=== PATIENT | female | born 1970 | race Caucasian/White ===

== ENCOUNTER 2023-12-06 10:29 | Emergency (ER) | payer BC, SELFPAY ==
[2023-12-06 10:30] VITALS: BP 168/92; PULSE 85; RESP 18; TEMP 36.2; O2SAT 99; BMI 32.0
--- NOTE | 2023-12-06 10:35 | ED.VIS.FEGU ---
HPI HPI - Female History of Present Illness Chief Complaint: Vag Bleeding Informant: patient Pain Pain: Positive for Pelvic Pain Onset: Yesterday Context: Gradual Onset Timing: Continuous Quality: Positive for Cramping Location: LLQ and Suprapubic Worsened by: - (Nothing) Relieved by: - (Nothing) Bleeding Issue: Positive for Vaginal bleeding Onset: Today Context: Sudden Onset Timing: Continuous Current Severity: Similar to period Associated Symptoms Associated Symptoms: Negative for Dysuria, Frequency or Urgency Narrative Narrative: Patient presents with pelvic pain and vaginal bleeding that began yesterday. Patient states she started having some cramping yesterday. Patient noted some bleeding today. Patient states her pain is mainly over the suprapubic and left pelvic area. Patient states her cramping has been constant. Patient states her bleeding is similar to a menstrual period. Patient states she has gone through menopause however. Patient states she has a recent attempt at a cervical biopsy to test for cervical cancer. Patient denies any dysuria, frequency, or hematuria. Patient states she did take an [id number]-bxdflux Azo with minimal relief. Patient states she called the [facility] on-call today and was referred to the emergency department. [facility] Medical History (Updated 12/06/23 @ 14:[address] Leonardo Portillo, DO) Hypertension Ovarian cyst Home Medications hydrocodone-acetaminophen 5-325mg 5mg-325mg 1 tab PO Q6H PRN PRN Pain 3 days #10 TABLETS 12/06/23 [Rx Last Taken Unknown] Allergy/AdvReac Type Severity Reaction Status Date / Time lidocaine Allergy Rash Verified 12/06/23 10:33 Penicillins Allergy Rash Verified 12/06/23 10:32 Surgical History H/O cardiac radiofrequency ablation Hx of appendectomy Hx of section Hx of tonsillectomy Social History Smoking Status: Never smoker substance use type: does not use ROS ROS ED Constitutional Constitutional ED: Denies chills or fever(s) Eyes Eyes: Denies blurry vision or change in vision ENT ENT ED: Denies rhinorrhea or sore throat Cardiovascular Cardiovascular: Denies chest pain or palpitations Respiratory/Chest Respiratory/Chest: Denies cough or dyspnea Gastrointestinal Gastrointestinal: Reports abdominal pain; Denies nausea or vomiting Genitourinary Genitourinary ED: Denies dysuria or hematuria Musculoskeletal Musculoskeletal: Reports back pain; Denies neck pain Integumentary Denies abscess or rash Neurologic Neurologic: Denies headache(s) or weakness Allergic/Immunologic Allergic/Immunologic ED: Denies mouth swelling or urticaria EXAM Physical Exam Const Vital Signs: 12/06/23 10:30 12/06/23 12:25 12/06/23 14:00 Temperature 97.2 F L Temperature Source Temporal Pulse Rate 85 84 81 Respiratory Rate 18 18 16 Blood Pressure 168/92 H 164/90 H 154/78 H Blood Pressure Mean 117 114 103 Pulse Ox 99 99 97 Oxygen Delivery Method Room Air Room Air Room Air Positive well nourished, well developed and obese General Appearance ED: well developed and NAD Nutritional Appearance: obese HEENT Reports moist mucous membranes Neck supple and no JVD Resp normal respiratory effort and clear to auscultation bilaterally Cardio regular rate and regular rhythm GI soft to palpation, non-tender and non-distended Neuro oriented x3, CN's II-XII intact bilaterally and no sensory deficits noted Sensorium / Orientation: alert Motor Exam: strength 5/5 throughout Psych mental status grossly normal MDM MDM MDM Narrative Medical decision making narrative: Differential diagnosis includes postprocedural bleeding, coagulopathy, ovarian cyst, urinary tract infection, and postmenopausal bleeding. CBC will be obtained to assess for leukocytosis and anemia. Basic metabolic profile will be obtained to assess for electrolyte abnormality and renal function. Urinalysis will be obtained to assess for urinary tract infection and hematuria. PT with INR and PTT will be obtained to assess for coagulopathy. CT scan of the abdomen pelvis will be obtained to assess for ovarian cyst, mass, and perforation. Lab Data Attestation: I reviewed the patient's lab results. Lab results narrative: CBC was reviewed and was within normal limits. PT was INR and PTT were reviewed and were within normal limits. Basic metabolic profile was reviewed and was within normal limits. Urinalysis was reviewed. There are positive nitrites but 0-5 white blood cells. There is 1+ bacteria. Occult blood was 250 but there were 0 red blood cells seen. Labs: Laboratory Results - last 24 hr 12/06/23 12/06/23 10:55 11:20 WBC 7.4 RBC 4.20 Hgb 12.1 Hct 37.5 MCV 89.3 MCH 28.8 MCHC 32.3 RDW Std Deviation 43.5 RDW Coeff of Nico 13.5 Plt Count 304 MPV 10.8 Immature Gran % (Auto) 0.400 Neut % (Auto) 65.8 Lymph % (Auto) 20.8 Hayes % (Auto) 10.9 H Eos % (Auto) 1.4 Baso % (Auto) 0.7 Absolute Neuts (auto) 4.8 Absolute Lymphs (auto) 1.53 Nucleated RBC % 0 PT 14.0 INR 1.1 APTT 26.4 Sodium 141 Potassium 3.8 Chloride 109 H Carbon Dioxide 29.0 Anion Gap 3 L BUN 10 Creatinine 0.73 Estim Creat Clear Calc 93.77 Est GFR (MDRD) Af Amer 107 Est GFR (MDRD) Non-Af 88 BUN/Creatinine Ratio 13.7 Glucose 99 Calcium 9.0 Urine Color Yellow Urine Clarity Clear Urine pH 7.0 Ur Specific [place] 1.010 Urine Protein Negative Urine Glucose (UA) Normal Urine Ketones Negative Urine Occult Blood 250 H Urine Nitrite Positive H Urine Bilirubin 3 H Urine Urobilinogen 8 H Ur Leukocyte Esterase Negative Urine RBC 0 SEEN Urine WBC 0-5 SEEN Ur Squamous Epith Cells 0-5 SEEN Urine Bacteria 1+ Urine Mucus 0 SEEN Radiography Diagnostic Testing: Clinical Impression(s) from Imaging Studies Abdomen/Pelvis CT 12/06/23 11:00 IMPRESSION: 1. 9 mm nonenhancing low-attenuation lesion in the right kidney with CT number of 17.5 Hounsfield units is simple cyst. 2. Hypodense fluid inside the endocervical canal. 3. Small midline umbilical hernia containing only normal fat. 4. Nonvisualization of the appendix but no secondary signs of acute appendicitis. 5. No suspicious acute abnormality in the abdomen and pelvis. Electronically Signed: Robel Woo MD at 12:44 EDT , CT scan of the abdomen pelvis was obtained. There is a 9 mm lesion in the right kidney consistent with a cyst. There is hyperdense fluid in the endocervical canal. There is a small midline umbilical hernia containing fat. There is no acute process noted. This was interpreted by the radiologist and was also independently reviewed by myself. Treatment and Re-Evaluation Narrative: Patient was given IV fluids, morphine, and Zofran. Patient was advised of her findings. Case was discussed with the [facility] nurse medicare biller, Yessenia Ashley. She recommended having the patient follow-up with [facility] DISPATCH[facility] this week. She will have the patient call tomorrow to schedule an appointment. Patient was given a prescription for a short course of [place]. Patient was instructed to return if worse in any way. Patient understood and was agreeable with the plan. All questions were answered. Discharge Plan Triage Chief Complaint: Vag Bleeding ED Provider: Leonardo Portillo Dx/Rx/DC Orders Clinical Impression: Postmenopausal bleeding, Pelvic pain Instructions: ED Dysfunctional Uterine Bleeding Prescriptions: New hydrocodone-acetaminophen [hydrocodone-acetaminophen] 5-325 mg tablet 1 tab PO Q6H PRN PRN (Reason: Pain) 3 Days Qty: 10 0RF Primary Care Provider: Linh Holbrook,Out of Referrals: Symone Ayers DO [Med Staff - Active Staff] - 3-5 Days (Call tomorrow to schedule an appointment) Linh Holbrook,Out of [Primary Care Provider] - Disposition Disposition: Home, Self Care
--- NOTE | 2023-12-06 11:00 | CT_ITS ---
EXAM: CT ABDOMEN AND PELVIS WITH INTRAVENOUS CONTRAST CLINICAL INDICATION: Pelvic pain TECHNIQUE: Helically acquired images were obtained of the abdomen and pelvis with intravenous contrast. This CT exam was performed using one or more of the following dose reduction techniques: automated exposure control, adjustment of the mA and/or kV according to patient size, and/or use of iterative reconstruction technique. CONTRAST: IV 100mL Isovue-370 RADIATION DOSE: CTDIvol = 20.03 mGy, DLP = 1129.84 mGy-cm COMPARISON: No relevant prior studies available. FINDINGS: LOWER THORAX: Unremarkable. Lung bases are clear. No cardiomegaly. No significant pericardial effusion. ABDOMEN: LIVER: Unremarkable. Homogeneous. No focal mass. GALLBLADDER AND BILE DUCTS: Unremarkable. No calcified gallstones. No gallbladder distention or wall edema. No intra- or extrahepatic biliary ductal dilation. PANCREAS: Unremarkable. No focal cystic or solid mass. SPLEEN: Unremarkable. Normal size without focal cystic or solid mass. ADRENALS: Unremarkable. No nodules. KIDNEYS AND URETERS: Unremarkable. Normal renal size and position. No hydronephrosis. STOMACH AND BOWEL: Unremarkable. No stomach or bowel distention. No focal inflammatory change. PELVIS: APPENDIX: Nonvisualization of the appendix but no secondary signs of acute appendicitis. BLADDER: Unremarkable. REPRODUCTIVE: Hypodense fluid inside the endocervical canal. No suspicious abnormality of the uterus. No adnexal mass lesions or cysts. ABDOMEN and PELVIS: INTRAPERITONEAL SPACE: Unremarkable. No ascites or other fluid collection. No free air. BONES/JOINTS: Pronounced L5-S1 degenerative disc space height narrowing with degenerative vacuum phenomenon. No lytic or blastic lesions. SOFT TISSUES: Small midline umbilical hernia containing only normal fat. VASCULATURE: Unremarkable. Abdominal aorta is non-dilated. LYMPH NODES: Unremarkable. No enlarged lymph nodes. CT/Abdomen/Pelvis W IV Cont ONLY IMPRESSION: 1. 9 mm nonenhancing low-attenuation lesion in the right kidney with CT number of 17.5 Hounsfield units is simple cyst. 2. Hypodense fluid inside the endocervical canal. 3. Small midline umbilical hernia containing only normal fat. 4. Nonvisualization of the appendix but no secondary signs of acute appendicitis. 5. No suspicious acute abnormality in the abdomen and pelvis. Electronically Signed: Robel Woo MD at 12:44 EDT ,
[2023-12-06 11:07] LABS: Mucous, Urine 0 SEEN /hpf (<or=2+); Red Blood Cells-Urine 0 SEEN /hpf (0-5)
[2023-12-06 11:11] LABS: Color, Urine Yellow (Yellow); Glucose, Dipstick Normal (Normal); Ketone-Dipstick Negative (Negative); Leukocyte Esterase-Dipstick Negative /ul (Negative); Nitrite-Dipstick Positive (Negative); Occult Blood-Urine 250 /ul (Negative); Protein-Dipstick Negative (Negative); Urine Clarity Clear (Clear); Urine Urobilinogen 8 mg/dl (Normal)
[2023-12-06] MEDS: Ondansetron 4 MG/2 ML Vial IV (11:20)
[2023-12-06] MEDS: 0.9% Normal Saline (1000mL) 1,000 ML 1000 ML IV (11:20)
[2023-12-06] MEDS: Morphine 4 MG/ML Syringe IV (11:20)
[2023-12-06 11:49] LABS: Absolute Lymphocyte Count 1.53 X10^3/uL (0.83-4.51); Absolute Neutrophil Count 4.8 X10^3/uL (2.0-7.7); Basophil# 0.05 X10^3/uL; Basophil% 0.7 % (0-1); Eosinophils% 1.4 % (0-5); Hematocrit 37.5 % (37-47); Hemoglobin 12.1 g/dL (12.0-15.0); Lymphocyte # 1.53 X10^3/ul (0.83-4.51); Lymphocyte % 20.8 % (19-41); Mean Corp Hgb Conc 32.3 g/dL (32-36); Mean Corpuscular Hgb 28.8 pg (27.0-32.0); Mean Corpuscular Volume 89.3 fL (81-99); Mean Platelet Vol. 10.8 fl (6.2-12.0); Monocyte% 10.9 % (0-10); NRBC Flagged by Analyzer 0 % (0-5); Neutrophil # 4.84 X10^3/uL (2.7-7.7); Neutrophil % 65.8 % (47-70); Platelet Count 304 K/mm3 (150-450); RBC Distribution Width CV 13.5 % (11.6-14.6); RBC Distribution Width SD 43.5 fl (35.1-43.9); White Blood Count 7.4 K/mm3 (4.4-11.0)
[2023-12-06 11:50] LABS: Urine Bilirubin Dipstick 3 mg/dL (Negative)
[2023-12-06 11:53] LABS: Bacteria 1+ /hpf (None Seen); Squamous Epithelial Cells - UA 0-5 SEEN /hpf (5-10); White Blood Cells 0-5 SEEN /hpf (0-5)
[2023-12-06 11:57] LABS: Anion Gap 3 (5-15); BUN 10 mg/dL (7-18); BUN/Creat Ratio 13.7 RATIO (10-20); Chloride 109 mmol/L (98-107); Creatinine, Serum 0.73 mg/dL (0.55-1.02); EST Glomerular Filtration Rate 88 mL/min (>60); Est Glom Filt Rate - Afr Amer 107 mL/min (>60); Estimated Creatinine Clearance 93.77 ml/min; Glucose 99 mg/dL (74-106); International Normalized Ratio 1.1; Potassium 3.8 mmol/L (3.5-5.1); Sodium Level 141 mmol/L (136-145)
[2023-12-06 11:58] LABS: Partial Thromboplast Time 26.4 Seconds (24.1-36.2)
[2023-12-06 12:25] VITALS: BP 164/90; PULSE 84; RESP 18; O2SAT 99
[2023-12-06 14:00] VITALS: BP 154/78; PULSE 81; RESP 16; O2SAT 97
--- NOTE | 2023-12-06 14:11 | ED.RN ---
Pt called this RN to room, states she is tired of waiting on test results and the MD to return for re-evaulation. This RN explained MD was waiting on her blog writer to call back, then would be back in to room to discuss findings and game plan. Pt difficult to reassure, states it's not acceptable to be spending several hours in an emergency department.
== END 2023-12-06 14:48 | disposition home or self-care (01) ==
PROVIDERS: Emergency Provider Emergency Medicine; Visit Provider Emergency Medicine
DX: N95.0 Postmenopausal bleeding (principal); N93.9 Abnormal uterine and vaginal bleeding, unspecified; I10 Essential (primary) hypertension; E66.9 Obesity, unspecified; N28.1 Cyst of kidney, acquired; K42.9 Umbilical hernia without obstruction or gangrene; R10.2 Pelvic and perineal pain
CPT/HCPCS: 74177; 80048; 81001; 85025; 85610; 85730; 96361; 96374; 96375; 99283; J7030; Q9967; A4216; J2405

== ENCOUNTER 2024-02-26 15:06 | Emergency (ER) | payer OTHER, BC, SELFPAY ==
[2024-02-26 15:07] VITALS: BP 176/96; PULSE 91; RESP 18; TEMP 36.7; O2SAT 97; BMI 32.3
--- NOTE | 2024-02-26 15:15 | ED.RN ---
[facility] NOTIFIEDSONY EN ROUTE FOR TESTING.
--- NOTE | 2024-02-26 15:23 | EX.ED.UPPERE ---
HPI History of Present Illness Chief Complaint: Upper Extremity Injury Detail of Chief Complaint: Injury to right hand and in particular ring finger Informant: patient Occured/Mechanism Mechanism/Context: Yes blunt trauma Comment: Injury occurred at work. Said the tire maureen shot out hit her hand. Onset/Context/Timing Onset: Today and Hours Context: Sudden Onset Timing: Continuous Quality of Pain: Dull, Aching and Throbbing Location: Left hypothenar eminence and left ring and little finger Current Severity: Mild Maximum Severity: Severe Worsened by: Light touch and any attempt to move the ring finger Associated Symptoms Associated Symptoms: Positive for Loss of Funtion; Negative for Parasthesia or Weakness Narrative Narrative: Patient is a 53-year-old [id number] woman who presents with blunt injury to her left hand. She states that the maureen hit her hand in the hypothenar eminence region and complains of significant pain left ring finger. She has swelling of the ring finger. She has a wedding band on. She presently denies paresthesia, anesthesia or motor weakness. There is no history of prior trauma. Prior similar symptoms: No Recent Illness/Hospitalization: No PFSH PFSH Medical History Ovarian cyst Hypertension Home Medications ?Medication ?Instructions ?Recorded ?Last Taken ?Type hydrocodone-acetaminophen 5-325mg 1 tab PO Q6H PRN PRN Pain 3 days 12/06/23 Unknown Rx 5mg-325mg #10 TABLETS Allergy/AdvReac Type Severity Reaction Status Date / Time lidocaine Allergy Rash Verified 02/26/24 15:13 Penicillins Allergy Rash Verified 02/26/24 15:13 Surgical History Hx of appendectomy Hx of section H/O cardiac radiofrequency ablation Hx of tonsillectomy Social History Smoking Status: Never smoker substance use type: does not use ROS ROS ED Musculoskeletal Musculoskeletal: Reports other Integumentary Denies Abrasions or rash Neurologic Neurologic: Denies paresthesias or weakness Hematologic/Lymphatic Hematologic/Lymphatic: Denies easy bleeding or easy bruising EXAM Physical Exam Const Vital Signs: 02/26/24 15:07 Temperature 98.1 F Temperature Source Temporal Pulse Rate 91 Respiratory Rate 18 Blood Pressure 176/96 H Blood Pressure Mean 122 Pulse Ox 97 Oxygen Delivery Method Room Air Positive well nourished and well developed Constitutional Narrative: Patient appears uncomfortable. She is reluctant to move her fingers left hand or use her left hand. General Appearance ED: well developed; Negative for cyanotic or diaphoretic HEENT Reports moist mucous membranes normocephalic and atraumatic Eyes PERRL and EOMs intact bilaterally Neck full ROM Resp normal respiratory effort Cardio regular rate and regular rhythm Extremity Negative for normal to inspection Extremity Narrative: There is swelling of the left ring finger. There may be some slight swelling of the hyperthenar eminence compared to the uninjured hand. Median, radial and ulnar function intact. The extensor mechanism of the index and long finger are intact as well as a little finger. Patient is reluctant to move her ring finger. The flexor digitorum superficialis and flexor digitorum profundus are intact in the index, long and little finger. Patient will not attempt to move her hands. She states she cannot. Capillary refill is normal. Neuro oriented x3 and CN's II-XII intact bilaterally Sensorium / Orientation: alert Psych mental status grossly normal Skin Skin Narrative: There is no obvious bruising noted at this time. There is no abrasion. MDM MDM MDM Narrative Medical decision making narrative: Because of the swelling and the fact that she has a wedding band on her left ring finger this will need to be cut off. X-ray of the left hand was obtained. Differential diagnosis is contusion versus fracture. Radiography Chest X-Ray - ED: Read by ED Physician (Three-view x-ray of the hand reveals no evidence of fracture, subluxation, dislocation. There is no foreign body noted.) and - (X-rays were interpreted by me at 1610.) Diagnostic Testing: At the time of discharge there is no radiology report attached to the HP document. Discharge Plan Triage Chief Complaint: Upper Extremity Injury ED Provider: Pj Mcwilliams Dx/Rx/DC Orders Clinical Impression: Contusion of left hand including fingers, Hypertension Instructions: ED Hand Contusion Prescriptions: No Action hydrocodone-acetaminophen [hydrocodone-acetaminophen] 5-325 mg tablet 1 tab PO Q6H PRN PRN (Reason: Pain) 3 Days Qty: 10 0RF Primary Care Provider: [facility] Doctor,Out of Referrals: Corporate,Care [Group of Physicians] - 3-5 Days [facility] Doctor,Out of [Primary Care Provider] - Activity Restrictions/Additional Instructions: 1. Apply ice to your left hand and fingers 6-10 times a day 2. You may take either 4 ibuprofen tablets every 8 hours or 2 Aleve tablets every 12 hours for the next 2 to 3 days for your pain. Print Language: [place] Disposition Disposition: Home, Self Care
--- NOTE | 2024-02-26 15:51 | RAD_ITS ---
STUDY: X-RAY - LEFT HAND REASON FOR EXAM: Female, 53 years old. Injury/Pain TECHNIQUE: 3 view(s) of the hand. COMPARISON: None. FINDINGS: Normal radiocarpal articulation. Normal distal radioulnar joint. Normal visualized carpal bones. Normal carpal articulations Normal carpometacarpal articulation of the thumb. Normal second through fifth carpometacarpal joints. Normal metacarpi. Normal metacarpophalangeal joint of the thumb. Normal interphalangeal joint of the thumb. Normal proximal and distal phalanges of the thumb. Normal metacarpophalangeal joints of the second through fifth fingers. Normal proximal and distal interphalangeal joints of the second through fifth fingers. Normal phalanges of the second through fifth fingers. The soft tissue structures are unremarkable. RAD/Hand Min 3 Views IMPRESSION: Normal x-ray examination of the hand. Electronically Signed: Luis Ayala MD at 16:13 EDT ,
[2024-02-26] MEDS: HYDROcodone Bitartrate/Apap 5/325 Tablet PO (15:57)
[2024-02-26 16:52] VITALS: BP 168/108; PULSE 82; RESP 16; TEMP 36.3; O2SAT 100
== END 2024-02-26 17:08 | disposition home or self-care (01) ==
LOC: ED 17:05
PROVIDERS: Emergency Provider Emergency Medicine; PCP Internal Medicine; Visit Provider Emergency Medicine
DX: S60.222A Contusion of left hand, initial encounter (principal); I10 Essential (primary) hypertension; W22.8XXA Striking against or struck by other objects, initial encounter; Y99.0 Civilian activity done for income or pay
CPT/HCPCS: 73130; 99283

== ENCOUNTER 2024-03-04 16:51 | Emergency (ER) | payer BC, SELFPAY ==
[2024-03-04 16:53] VITALS: BP 176/94; PULSE 101; RESP 18; TEMP 36.6; O2SAT 98; BMI 32.5
[2024-03-04 17:21] LABS: Amphetamine Urine VISTA NEGATIVE (<1000 ng/mL); Barbiturate Urine VISTA NEGATIVE (< 200 ng/mL); Benzodiazepine Urine VISTA NEGATIVE (< 200 ng/mL); Cocaine Urine VISTA NEGATIVE (< 300 ng/mL); Ecstacy Urine VISTA NEGATIVE (< 500 ng/mL); Methadone Urine VISTA NEGATIVE (< 300 ng/mL); PCP Urine VISTA NEGATIVE (< 25 ng/mL); THC Urine VISTA NEGATIVE (< 50 ng/mL); Vista UDS pH Range 5
--- NOTE | 2024-03-04 18:30 | ED.RN ---
Pt discussed leaving with this RN and [employer]. Pt stated she wanted to go home and sleep, states she feels better. Denies wanting to press charges. Pt has left department,
== END 2024-03-04 18:30 | disposition left against medical advice (07) ==
LOC: ED 18:40
PROVIDERS: PCP Internal Medicine
DX: Z53.21 Procedure and treatment not carried out due to patient leaving prior to being seen by health care provider (principal)
CPT/HCPCS: 80307

== ENCOUNTER 2024-05-30 14:47 | Emergency (ER) | payer BC, SELFPAY ==
[2024-05-30 14:47] VITALS: BP 150/89; PULSE 73; RESP 16; TEMP 36.8; O2SAT 97
--- NOTE | 2024-05-30 15:04 | EDS_ITS ---
HPI History of Present Illness Chief Complaint: Syncope Detail of Chief Complaint: Syncope Informant: patient Narrative Narrative: Patient presents to the emergency department after a syncopal episode while at work today. 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 She done felt like her heart was racing and her watch that it was anywhere from 10 5-1 15. She then felt like her heart started to race even faster and she passed out for few seconds. She denies injury. She has had similar episodes in the past. She has history of SVT with 2 ablations in the past. Her last ablation was in 2020. Patient on Lopressor 25 mg twice a day. Currently denies chest pain. She denies recent travel or surgery. Not anticoagulated. [facility] Medical History (Updated 05/30/24 @ 17:[address] Mac Jarvis DO) IBS (irritable bowel syndrome) SVT (supraventricular tachycardia) Ovarian cyst Hypertension Home Medications ?Medication ?Instructions ?Recorded ?Last Taken ?Type hydrocodone-acetaminophen 5-325mg 1 tab PO Q6H PRN PRN Pain 3 days 12/06/23 Unknown Rx 5mg-325mg #10 TABLETS Allergy/AdvReac Type Severity Reaction Status Date / Time lidocaine Allergy Rash Verified 03/04/24 16:52 Penicillins Allergy Rash Verified 03/04/24 16:52 Surgical History (Updated 05/30/24 @ 15:37 by Maliha Timmons) History of foot surgery Hx of appendectomy Hx of section H/O cardiac radiofrequency ablation Hx of tonsillectomy Social History Smoking Status: Never smoker substance use type: does not use ROS ROS ED Review of Systems ROS Unobtainable: other Constitutional Constitutional ED: Reports lethargy; Denies chills, fever(s), sweats or weight loss Eyes Eyes: Denies blurry vision, change in vision or diplopia ENT ENT ED: Denies rhinorrhea or sore throat Cardiovascular Cardiovascular: Reports chest pain, racing heartbeat and other Details: Syncope ; Denies orthopnea Respiratory/Chest Respiratory/Chest: Denies cough, dyspnea, dyspnea on exertion, orthopnea or sputum Gastrointestinal Gastrointestinal: Denies abdominal pain, diarrhea, nausea or vomiting Genitourinary Genitourinary ED: Denies dysuria, hematuria or urinary frequency Musculoskeletal Musculoskeletal: Denies arthralgias, back pain, myalgias or neck pain Integumentary Denies abscess, Abrasions or rash Neurologic Neurologic: Denies headache(s) or weakness Psychiatric Psychiatric: Denies anxiety, depression or suicidal thoughts Endocrine Endocrinology: Denies polydipsia, polyphagia or polyuria Hematologic/Lymphatic Hematologic/Lymphatic: Denies easy bleeding, easy bruising or lymphadenopathy Allergic/Immunologic Allergic/Immunologic ED: Denies mouth swelling, tongue swelling or urticaria EXAM Physical Exam Const Vital Signs: 05/30/24 14:47 05/30/24 15:35 05/30/24 15:37 Temperature 98.2 F Temperature Source Oral Pulse Rate 73 Pulse Rate [Lying] 67 Pulse Rate [Sitting (for 1 minute prior to obtaining)] 73 Pulse Rate [Standing (for 1 minute prior to obtaining)] 65 Respiratory Rate 16 Respiratory Effort Normal Non-Labored Respiratory Pattern Normal Blood Pressure 150/89 H Blood Pressure [Lying] 152/84 H Blood Pressure [Sitting (for 1 minute prior to obtaining)] 149/95 H Blood Pressure [Standing (for 1 minute prior to obtaining)] 154/89 H Blood Pressure Mean 109 Blood Pressure Mean [Lying] 106 Blood Pressure Mean [Sitting (for 1 minute prior to obtaining)] 113 Blood Pressure Mean [Standing (for 1 minute prior to obtaining)] 110 Pulse Ox 97 Oxygen Delivery Method Room Air 05/30/24 15:47 05/30/24 16:00 05/30/24 17:00 Temperature Temperature Source Pulse Rate 65 66 66 Pulse Rate [Lying] Pulse Rate [Sitting (for 1 minute prior to obtaining)] Pulse Rate [Standing (for 1 minute prior to obtaining)] Respiratory Rate 15 22 H 24 H Respiratory Effort Respiratory Pattern Blood Pressure 154/85 H 162/88 H Blood Pressure [Lying] Blood Pressure [Sitting (for 1 minute prior to obtaining)] Blood Pressure [Standing (for 1 minute prior to obtaining)] Blood Pressure Mean 105 109 Blood Pressure Mean [Lying] Blood Pressure Mean [Sitting (for 1 minute prior to obtaining)] Blood Pressure Mean [Standing (for 1 minute prior to obtaining)] Pulse Ox 98 98 Oxygen Delivery Method Positive well nourished and well developed General Appearance ED: well developed and NAD HEENT Reports TM's clear and moist mucous membranes normocephalic and atraumatic; Negative for trauma or tenderness Tympanic Membrane ED: Yes TM's clear Eyes PERRL and EOMs intact bilaterally General Eye ED: Negative for pale conjunctiva or scleral icterus Neck no lymphadenopathy, supple and no JVD General: Negative for tenderness Chest Wall inspection of chest normal and palpation of chest normal Chest: Negative for tenderness Resp normal respiratory effort and clear to auscultation bilaterally Effort and Inspection: Negative for respiratory distress or pain with movement Auscultation: Negative for rhonchi, wheezes or diminished lung sounds Cardio regular rate, regular rhythm, S1 normal heart sound, S2 normal heart sound and no murmurs Peripheral Pulses: pulses 2+ throughout GI normal to inspection, nondistended, normoactive bowel sounds, soft to palpation, non-tender, non-distended and no masses Back/Spine no CVA tenderness and no thoracic nor lumbar tenderness Extremity normal to inspection General Extremety ED: Negative for edema General Extremity: Negative for edema Neuro oriented x3, CN's II-XII intact bilaterally, no sensory deficits noted and gait normal Sensorium / Orientation: awake, alert, oriented to person, oriented to place and oriented to time Motor Exam: strength 5/5 throughout and strength abnormal Psych mental status grossly normal Skin no rashes or lesions noted and no wounds MDM MDM MDM Narrative Medical decision making narrative: Patient presents the emergency department with tachycardia and a syncopal epi sode. Patient has history of SVT. She had an episode of chest pain that lasted a few seconds prior sharp and stabbing and atypical. IV established on arrival. 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 EKG obtained showed a sinus rhythm with rate of 70 bpm with no acute ST segment changes. CBC with differential showed white, 7.0 with hemoglobin 13.2 and platelet count of 332. Chemistries unremarkable. Troponin was normal less than 3. D-dimer normal at 0.37. Chest x-ray unremarkable. Patient remained asymptomatic in the department. 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 Spoke with Dr. Perez. It was recommended that we do a 48-hour Holter monitor and outpatient follow-up with their office. I also advised the patient not to drive. I was told we do not have Holter monitors to apply. Patient will have to follow-up with her fish hatchery superintendent. Lab Data Attestation: I reviewed the patient's lab results. Labs: Laboratory Results - last 24 hr 05/30/24 15:30 WBC 7.0 RBC 4.42 Hgb 13.2 Hct 39.5 MCV 89.4 MCH 29.9 MCHC 33.4 RDW Std Deviation 43.2 RDW Coeff of Nico 13.1 Plt Count 332 MPV 11.2 Immature Gran % (Auto) 0.600 Neut % (Auto) 57.8 Lymph % (Auto) 29.6 Hodgeman % (Auto) 9.9 Eos % (Auto) 1.4 Baso % (Auto) 0.7 Absolute Neuts (auto) 4.0 Absolute Lymphs (auto) 2.07 Nucleated RBC % 0 D-Dimer Quant (PE/DVT) 0.37 Sodium 141 Potassium 4.2 Chloride 108 H Carbon Dioxide 27.0 Anion Gap 7 BUN 17 Creatinine 0.76 Estim Creat Clear Calc 91.35 Est GFR (MDRD) Af Amer 101 Est GFR (MDRD) Non-Af 84 BUN/Creatinine Ratio 22.3 H Glucose 103 Calcium 10.0 Troponin I High Sens < 3 L Radiography Chest X-Ray - ED: 1 View Diagnostic Testing: Clinical Impression(s) from Imaging Studies Chest X-Ray 05/30/24 16:12 IMPRESSION: Normal x-ray examination of the chest. Electronically Signed: Moisés Ramachandran MD at 16:53 EDT Reading Location ID and State: [address] [place] [address] , Service support , 1 view chest x-ray obtained interpreted by myself as no evidence of infiltrate or pneumothorax or acute disease process. Radiology in agreement. EKG Initial EKG: Attestation: I personally reviewed and interpreted this EKG as follows: Comments: Sinus rhythm with ventricular rate of 70 bpm with no acute ST segment changes Discharge Plan Triage Chief Complaint: Syncope ED Provider: Mac Jarvis Dx/Rx/DC Orders Clinical Impression: Tachycardia, Syncope, Chest pain Instructions: ED Chest Pain, Uncertain Cause, ED Palpitations, ED Fainting, Uncertain Cause Prescriptions: No Action hydrocodone-acetaminophen [hydrocodone-acetaminophen] 5-325 mg tablet 1 tab PO Q6H PRN PRN (Reason: Pain) 3 Days Qty: 10 0RF Primary Care Provider: Beny Zuniga Referrals: Beny Zuniga MD [Primary Care Provider] - Print Language: [place] Island[place] Disposition Disposition: Home, Self Care
--- NOTE | 2024-05-30 15:23 | NURSING ---
NO OLD EKGS
[2024-05-30 15:37] VITALS: BP 149/95; BP 152/84; BP 154/89; PULSE 65; PULSE 67; PULSE 73
[2024-05-30 15:39] VITALS: BMI 33.6
[2024-05-30 15:39] LABS: Absolute Lymphocyte Count 2.07 X10^3/uL (0.83-4.51); Basophil# 0.05 X10^3/uL; Basophil% 0.7 % (0-1); Eosinophils% 1.4 % (0-5); Hematocrit 39.5 % (37-47); Hemoglobin 13.2 g/dL (12.0-15.0); Lymphocyte # 2.07 X10^3/ul (0.83-4.51); Lymphocyte % 29.6 % (19-41); Mean Corp Hgb Conc 33.4 g/dL (32-36); Mean Corpuscular Hgb 29.9 pg (27.0-32.0); Mean Corpuscular Volume 89.4 fL (81-99); Mean Platelet Vol. 11.2 fl (6.2-12.0); Monocyte# 0.69 X10^3/uL; Monocyte% 9.9 % (0-10); NRBC Flagged by Analyzer 0 % (0-5); Neutrophil # 4.04 X10^3/uL (2.7-7.7); Neutrophil % 57.8 % (47-70); Platelet Count 332 K/mm3 (150-450); RBC Distribution Width CV 13.1 % (11.6-14.6); RBC Distribution Width SD 43.2 fl (35.1-43.9); Red Blood Count 4.42 M/mm3 (4.2-5.4)
[2024-05-30 15:47] VITALS: PULSE 65; RESP 15; O2SAT 98
[2024-05-30 15:56] LABS: D-Dimer Quantitative (DVT/PE) 0.37 FEU/ug/m (0.27-0.49)
[2024-05-30 16:00] VITALS: BP 154/85; PULSE 66; RESP 22; O2SAT 98
[2024-05-30 16:00] LABS: Anion Gap 7 (5-15); BUN 17 mg/dL (7-18); BUN/Creat Ratio 22.3 RATIO (10-20); Chloride 108 mmol/L (98-107); Creatinine, Serum 0.76 mg/dL (0.55-1.02); EST Glomerular Filtration Rate 84 mL/min (>60); Est Glom Filt Rate - Afr Amer 101 mL/min (>60); Estimated Creatinine Clearance 91.35 ml/min; Glucose 103 mg/dL (74-106); Potassium 4.2 mmol/L (3.5-5.1); Sodium Level 141 mmol/L (136-145); Troponin-I HS < 3 pg/mL (3.0-54.0)
--- NOTE | 2024-05-30 16:12 | RAD_ITS ---
STUDY: X-RAY CHEST REASON FOR EXAM: Female, 54 years old. Chest pain TECHNIQUE: Single AP portable view of the chest. COMPARISON: None. FINDINGS: EKG leads overlie the chest The lungs are clear and expanded. There is no demonstrated pleural abnormality. Normal size heart. Normal mediastinum and kim. Normal visualized pulmonary arteries. Normal visualized aortic arch and descending thoracic aorta. Normal visualized thoracic spine. Normal visualized ribs, clavicles, and shoulders. There is no demonstrated abnormality of the visualized soft tissue structures of the upper abdomen. RAD/Chest 1 View (Portable) IMPRESSION: Normal x-ray examination of the chest. Electronically Signed: Moisés Ramachandran MD at 16:53 EDT ,
[2024-05-30 17:00] VITALS: BP 162/88; PULSE 66; RESP 24
[2024-05-30 17:30] VITALS: BP 153/95; PULSE 72; RESP 20; O2SAT 99
[2024-05-30 18:26] LABS: Troponin-I HS 4 pg/mL (3.0-54.0)
== END 2024-05-30 18:32 | disposition home or self-care (01) ==
PROVIDERS: Emergency Provider Emergency Medicine; PCP Internal Medicine; Visit Provider Emergency Medicine
DX: R55 Syncope and collapse (principal); R00.0 Tachycardia, unspecified; R07.9 Chest pain, unspecified; I10 Essential (primary) hypertension; Z79.899 Other long term (current) drug therapy
CPT/HCPCS: 71045; 80048; 84484; 85025; 85379; 93005; 99285; A4216

== ENCOUNTER 2024-12-16 10:02 | Day surgery (SDC) | payer BC, SELFPAY ==
--- NOTE | 2024-12-09 09:56 | HP.PCM_ITS ---
History and Physical Date of Admission: 12/16/24 HPI: The patient is a 54 year old female presenting for pre-operative visit. She is scheduled for Hysteroscopy D&C, fIUD insertion for PMB, thickened endometrium and endometrial polyp on 12/16/24. Procedure discussed along with risks, benefits and complications. Other alternatives discussed for management. Consent form signed? No. ? ? PAST MEDICAL HISTORY PAST MEDICAL HISTORYDiagnosisDate?History of electrophysiologic study10/28/2022? Patient underwent EP study with Dr. Mckeon on 10/28/2022. There was no inducible SVT.?Migraine, unspecified, with intractable migraine, so stated, without mention of status migrainosus??Migraine?Peptic ulcer, unspecified site, unspecified as acute or chronic, without mention of hemorrhage, perforation, or obstruction??Peptic ulcer disease?Unspecified essential hypertension??Essential hypertension ? ? PAST SURGICAL HISTORY PAST SURGICAL HISTORYProcedureLateralityDate?ABLATION SVT???x 2 ?APPENDECTOMY??? DELIVERY ONLY???, low cervical x2?D&C, DIAG AND/OR THERAPEUTIC?1990?TONSILLECTOMY PRIMARY/SECONDARY <AGE 12???Tonsillectomy ? ? ? CURRENT MEDICATIONS Current Outpatient MedicationsMedicationSigDispenseRefill?norethindrone (AYGESTIN) 5 mg tabletTake 1 tablet by mouth three times a day. Take 1 tablet 1 to three times a day as needed to control bleeding.30 tablet1?metoprolol tartrate, short acting, (LOPRESSOR) 25 mg tabletTake 0.5 tablets by mouth two times a day.90 tablet1?OTC PRODUCTTake by mouth once daily. Vitamin D (no known dosage)???Multivitamin ORAL TabTake 1 tablet by mouth once daily.?0?No current facility-administered medications for this visit. ? ? ALLERGIES: Lidocaine, Penicillins, and Red Blood Cells ? PERSONAL HISTORY: SOCIAL HISTORY Social History?Tobacco Use?Smoking status:Never?Smokeless tobacco:NeverVaping Use?Vaping status:Never UsedSubstance Use Topics?Alcohol use:Yes??Alcohol/week:1.0 standard drink of alcohol??Types:1 Shots of liquor per week??Comment: occasional?Drug use:Never ? FAMILY HISTORY: FAMILY HISTORY FAMILY HISTORY ProblemRelationAge of Onset?HypertensionMother??St rokeMother??Heart AttackMother?? stents?COPDMother??CancerFather?? kidney,prostate,bladder?HypertensionFather??Prostate CancerFather??COPDFather??HypertensionBrother??HypertensionBrother? ? ? REVIEW OF SYMPTOMS: GENERAL: denies fevers or chills ENDOCRINOLOGY: has not been on steroids Cardiology : denies palpitations or chest pain Respiratory: denies SOB or cough Hematology: denies history of prolonged bleeding or easy bruising or VTE Allergy: Denies history of personal or family history of allergy to anesthesia ? PHYSICAL EXAMINATION: ? VITALS: Last menstrual period 12/06/2023. ? GENERAL: The patient is well nourished, well hydrated in no acute distress. , The patient is oriented to time, place, and person. ? pelvic US 11/18/24: Indication postmenopausal bleeding Impression The uterus is anteverted and measures 97 mm x 48 mm x 61 mm. The endometrial thickness is 6.2 mm. There are myometrial cysts, the largest of which is 6 mm x 6 mm x 6 mm. This is suggestive of adenomyosis. Polyp(s): Size 14 mm x 8 mm x 5 mm. Anterior with vascular stalk. The right ovary measures 32 mm x 28 mm x 27 mm and contains a 28 mm x 27 mm x 27 mm unilocular simple cyst. The left ovary measures 15 mm x 19 mm x 11 mm. There is no free fluid visualized. Recommendations 1. Likely endometrial polyp. Consider fu rther evaluation with SIS or hysteroscopy. 2. Thickened endometrial stripe in setti ng of postmenopausal bleeding. 3. Cystic myometrium, suggestive of bryanna omyosis. Clinical correlation. 4. O-RADS 2 ovarian simple cyst, almost certainly benign. No follow up imaging is needed. \IMPRESSION: PMB, thickened endometrium, endometrial polyp and adenomyosis ? PLAN: .The risks/benefits/alternatives and personal involved for the planned hsyteroscopy &C with IUD insertion were reviewed with the patient. Her questions were answered to her satisfaction and she desires to proceed. Consent was signed. I reviewed with her postop instructions and expectations. ? ? ? I have reviewed and updated past medical and surgical history, medications and allergies Assessment & Plan Assessment/Plan (1) PMB (postmenopausal bleeding): (2) Endometrial polyp: (3) Endometrial thickening on ultrasound: (4) Adenomyosis:
[2024-12-12 14:57] LABS: Hematocrit 37.1 % (37-47); Hemoglobin 12.3 g/dL (12.0-15.0); Mean Corp Hgb Conc 33.2 g/dL (32-36); Mean Corpuscular Hgb 29.9 pg (27.0-32.0); Mean Platelet Vol. 11.2 fl (6.2-12.0); Platelet Count 363 K/mm3 (150-450); RBC Distribution Width CV 13.2 % (11.6-14.6); RBC Distribution Width SD 43.5 fl (35.1-43.9); Red Blood Count 4.12 M/mm3 (4.2-5.4); White Blood Count 8.2 K/mm3 (4.4-11.0)
[2024-12-12 15:42] LABS: Anion Gap 11 (5-15); BUN 7 mg/dL (4-19); BUN/Creat Ratio 9.3 RATIO (10-20); Carbon Dioxide 22.2 mmol/L (21.0-32.0); Chloride 108 mmol/L (98-108); Creatinine, Serum 0.77 mg/dL (0.70-1.20); EST Glomerular Filtration Rate 92 (>60); Glucose 112 mg/dL (70-99); Sodium Level 141 mmol/L (133-145)
--- NOTE | 2024-12-13 18:27 | PAT.ANESEVAL ---
Pre-Assessment Diagnosis/Proposed Procedure Planned Operative Procedure(s): Hysteroscopy,D&C. polyp resection, Symphion, Liletta IUD insertion Anesthesia History Anesthesia History - communications intern: Anesthesia History - communications intern Hx Hospitalization No 12/12/24 11:24 Any Problems With Anesthesia Yes: SLOW TO WAKE UP 12/12/24 11:24 Cholinesterase deficiency No 12/12/24 11:24 You/Your Family Experience No 12/12/24 11:24 fever (hyperthermia) with Relationship Recent Exposure to Contagious Disease Does patient have nerve No 12/12/24 11:24 stimulator Patient instructed to have device shut off --Does patient have Pacemaker or ICD? When Was Last Pacemaker Check QUESTION #4 FULL TEXT: You/Your Family Experience fever (hyperthermia) with Anesthesia Last Oral Intake Last Oral intake: Last Oral Intake NPO since Meds taken in AM with sips of water? Meds patient instructed to take am of surgery PONV PONV - communications intern: PONV - communications intern Female Yes 12/12/24 11:24 HX of Motion Sickness No 12/12/24 11:24 HX of N/V After Surgery No 12/12/24 11:24 Non-Smoker Yes 12/12/24 11:24 Duration of Surgery greater No 12/12/24 11:24 than 60 minutes Number of Risk Factors 2 12/12/24 11:24 PONV Score Moderate Risk 12/12/24 11:24 Height & Weight Height & Weight: Anesthesia: Height & Weight Height 5 ft 4 in 05/30/24 14:47 Respiratory Assessment Respiratory Assessment - communications intern: Respiratory Tract Infection Hx - communications intern Hx Respiratory Tract Infection No 12/12/24 11:24 STOP Sleep Apnea STOP Sleep Apnea - communications intern: STOP Sleep Apnea - communications intern Hx Hypertension Yes: CONTROLLED WITH MED 12/12/24 11:24 Hx Sleep Apnea No 12/12/24 11:24 CPAP BIPAP Do you snore loudly (louder No 12/12/24 11:24 than talking or can be heard Do you often feel tired/ No 12/12/24 11:24 fatigued/ sleepy during daytime? Has anyone observed you stop No 12/12/24 11:24 breathing during sleep? STOP Results Negative 12/12/24 11:24 QUESTION #5 FULL TEXT : Do you snore loudly (louder than talking or can be heard through closed doors)? Tobacco Use History Tobacco Use History - communications intern: Tobacco Use History - communications intern Tobacco Use Smoking Status Never smoker 12/12/24 11:24 Hx Tobacco Use No 12/12/24 11:24 Years Smoking Packs Smoked per Day Smoking Cessation Date was within the last 15 years Hx Smoking Cessation Date Hx Smoking Cessation Counseling Hematologic Medial History Hematologic Hx - communications intern: Hematologic Medical Hx - check embosser Hx of Blood Transfusion Yes 12/12/24 11:24 Hx of Transfusion in last 3 No 12/12/24 11:24 Months Date of Last Transfusion (if within last 3 months) Ever experience any problems Yes 12/12/24 11:24 with transfusion(s)? Specify any problems HYPERTHERMIA, SOB, HTN 12/12/24 11:24 Hx of Preganancy in last 3 No 12/12/24 11:24 Months Nurse Filling Out Transfusion NBUCHER 12/12/24 11:24 & Questions: Date: 12/12/24 12/12/24 11:24 Time: 11:25 12/12/24 11:24 Patient unable to answer at this time (ie. confused, unrespo /Reproduction History /Reproductive History - communications intern: /Reproductive Hx- communications intern Hx Now No 12/12/24 11:24 Gestational Age (in weeks): EDC: Hx Hx Para Hx Section SAB No 12/12/24 11:24 PFSH Medical History (Updated 12/12/24 @ 11:32 by Chelsey Cullen) Loss of hearing Wears glasses Wears dentures Cancer Arthritis History of IBS Gastric reflux Heartburn Non-smoker History of echocardiogram History of stress test Cardiology follow-up encounter IBS (irritable bowel syndrome) SVT (supraventricular tachycardia) Ovarian cyst Hypertension Home Medications ?Medication ?Instructions ?Recorded ?Last Taken ?Type cholecalciferol (vitamin D3) 10 10 mcg PO DAILY 12/12/24 Unknown History mcg (400 unit) capsule (Vitamin D3) metoprolol tartrate 25 mg tablet 25 mg PO BID 12/12/24 Unknown History multivitamin (Daily Multi-Vitamin 1 tab PO DAILY 12/12/24 Unknown History tablet) norethindrone acetate 5 mg tablet 5 mg PO TID 12/12/24 Unknown History Allergy/AdvReac Type Severity Reaction Status Date / Time lidocaine Allergy Rash Verified 12/12/24 11:21 Penicillins Allergy Rash Verified 12/12/24 11:21 Surgical History History of foot surgery Hx of appendectomy Hx of section H/O cardiac radiofrequency ablation Hx of tonsillectomy Social History Smoking Status: Never smoker substance use type: does not use Audit: Pertinent Findings Pertinent Findings EKG Perinent findings: May 30, 2024. Normal sinus rhythm. Stress test pertinent findings: 10/17/2022. Abnormal stress test due to ST depression (see CT angiogram below) Echo (EF%) pertinent findings: 2022. Essentially normal. Consult pertinent findings: 07/08/2024. Dr. Pham. 1. Chest pain-suspect noncardiac chest pain. Possible esophageal spasm. 2. SVT?Holter was okay. No significant arrhythmia. Repeat EP study was negative?spring. 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 Successful ablation of the slow AV node pathway. Additional pertinent findings: Holter. 06/09/2024 to 06/23/2024. Predominant rhythm was sinus. There were 38 ventricular beats with a burden of less than 1%. There were 1510 supraventricular beats with a burden of less than 1%. 17 patient triggers during sinus rhythm and sinus tachycardia CT angiogram performed April 08, 2023-No evidence of coronary stenosis or plaque noted. Recommendation Anesthesia Recommendation Anesthesia recommendation: OPTIMIZED for anesthesia
[2024-12-16] VITALS (10 sets, daily range): BP systolic 120–159; BP diastolic 73–94; PULSE 78–88; RESP 16; TEMP 36.3–37.2; O2SAT 95–99; BMI 34.0
--- NOTE | 2024-12-16 10:22 | PRE.ANES_ITS ---
ASA Classification* ASA Classification ASA Classification: 3 Assessment & Plan Anesthesia* Anesthesia Assessment Anesthesia Assessment: Discussed sedation and/or anesthesia options, risks, benefits, and alternatives with patient/parents/legal guardian/POA. Questions invited. The patient/parents/legal guardian/POA seems to understand and agrees to proceed with anesthesia plan. Reviewed the physical assessment, medical history, allergy history and patient home medications list prior to surgery/procedure/anesthetic and documented any changes. Performed airway and anesthesia risk assessments. Anesthesia Type Anesthesia Type: MAC Anesthesia Focused Assessment* Airway Assessment Mouth opens: >3 cm Mallampati Score: II Focused Labs Anesthesia Preop lab: CBC WBC 8.2 K/mm3 (4.4-11.0) 12/12/24 13:38 12/12/24 RBC 4.12 M/mm3 (4.2-5.4) L 12/12/24 13:38 12/12/24 Hgb 12.3 g/dL (12.0-15.0) 12/12/24 13:38 12/12/24 Hct 37.1 % (37-47) 12/12/24 13:38 12/12/24 Plt Count 363 K/mm3 (150-450) 12/12/24 13:38 12/12/24 CHEMISTRY Potassium 4.0 mmol/L (3.3-5.1) 12/12/24 13:38 12/12/24 Sodium 141 mmol/L (133-145) 12/12/24 13:38 12/12/24 BUN 7 mg/dL (4-19) 12/12/24 13:38 12/12/24 Creatinine 0.77 mg/dL (0.70-1.20) 12/12/24 13:38 12/12/24 Glucose 112 mg/dL (70-99) H 12/12/24 13:38 12/12/24 COAG PT 14.0 SECONDS (11.7-14.9) 12/06/23 11:20 Pre-Assessment Diagnosis/Proposed Procedure Planned Operative Procedure(s): Hysteroscopy,D&C. 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 When Was Last Pacemaker Check QUESTION #4 FULL TEXT: You/Your Family Experience fever (hyperthermia) with Anesthesia Last Oral Intake Last Oral intake: Last Oral Intake NPO since Meds taken in AM with sips of water? Meds patient instructed to take am of surgery PONV PONV - upholstery covers inspector: PONV - upholstery covers inspector Female Yes 12/12/24 11:24 HX of Motion Sickness No 12/12/24 11:24 HX of N/V After Surgery No 12/12/24 11:24 Non-Smoker Yes 12/12/24 11:24 Duration of Surgery greater No 12/12/24 11:24 than 60 minutes Number of Risk Factors 2 12/12/24 11:24 PONV Score Moderate Risk 12/12/24 11:24 Height & Weight Height & Weight: Anesthesia: Height & Weight Height 5 ft 4 in 05/30/24 14:47 Respiratory Assessment Respiratory Assessment - upholstery covers inspector: Respiratory Tract Infection Hx - upholstery covers inspector Hx Respiratory Tract Infection No 12/12/24 11:24 STOP Sleep Apnea STOP Sleep Apnea - upholstery covers inspector: STOP Sleep Apnea - upholstery covers inspector Hx Hypertension Yes: CONTROLLED WITH MED 12/12/24 11:24 Hx Sleep Apnea No 12/12/24 11:24 CPAP BIPAP Do you snore loudly (louder No 12/12/24 11:24 than talking or can be heard Do you often feel tired/ No 12/12/24 11:24 fatigued/ sleepy during daytime? Has anyone observed you stop No 12/12/24 11:24 breathing during sleep? STOP Results Negative 12/12/24 11:24 QUESTION #5 FULL TEXT : Do you snore loudly (louder than talking or can be heard through closed doors)? 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 Specify any problems HYPERTHERMIA, SOB, HTN 12/12/24 11:24 Hx of Preganancy in last 3 No 12/12/24 11:24 Months Nurse Filling Out Transfusion NBUCHER 12/12/24 11:24 & Questions: Date: 12/12/24 12/12/24 11:24 Time: 11:25 12/12/24 11:24 Patient unable to answer at this time (ie. confused, unrespo /Reproduction History /Reproductive History - upholstery covers inspector: /Reproductive Hx- upholstery covers inspector Hx Now No 12/12/24 11:24 Gestational Age (in weeks): EDC: Hx Hx Para Hx Section SAB No 12/12/24 11:24 Active Medications Active Medications: Current Medications Generic Name Dose Route Start Last Admin Trade Name Freq PRN Reason Stop Dose Admin Acetaminophen 1,000 mg 12/16/24 11:25 Acetaminophen 500 Mg Tablet PO 12/16/24 11:26 X1 ONE Lactated Ringer's 1,000 mls @ 15 mls/hr 12/16/24 10:15 IV .Q48H CALVIN Ketorolac Tromethamine 30 mg 12/16/24 11:25 Ketorolac 30 Mg/Ml Syringe IV 12/16/24 11:26 X1 ONE Levonorgestrel 1 each 12/16/24 11:25 Levonorgestrel Iud (Liletta) INTRA-UTER 12/16/24 11:26 X1 ONE PFSH Medical History Loss of hearing Wears glasses Wears dentures Cancer Arthritis History of IBS Gastric reflux Heartburn Non-smoker History of echocardiogram History of stress test Cardiology follow-up encounter IBS (irritable bowel syndrome) SVT (supraventricular tachycardia) Ovarian cyst Hypertension Home Medications ?Medication ?Instructions ?Recorded ?Last Taken ?Type cholecalciferol (vitamin D3) 10 10 mcg PO DAILY Unknown History mcg (400 unit) capsule (Vitamin D3) metoprolol tartrate 25 mg tablet 25 mg PO BID 12/12/24 Unknown History multivitamin (Daily Multi-Vitamin 1 tab PO DAILY 12/12 Unknown History tablet) norethindrone acetate 5 mg tablet 5 mg PO TID 12/12/24 Unknown History Allergy/AdvReac Type Severity Reaction Status Date / Time lidocaine Allergy Rash Verified 12/12/24 11:21 Penicillins Allergy Rash Verified 12/12/24 11:21 Surgical History History of foot surgery Hx of appendectomy Hx of section H/O cardiac radiofrequency ablation Hx of tonsillectomy Social History Smoking Status: Never smoker substance use type: does not use Review of Systems (Anesthesia) ROS Narrative System reviewed and no additional complaints, except as documented.
[2024-12-16 10:39] LABS: Internal QC Validated? YES +Cl - CLEAR BKGD; Pregnancy, Urine Negative Negative
[2024-12-16] MEDS: Acetaminophen 500 MG Tablet 1000 MG PO (10:50)
[2024-12-16] MEDS: Lactated Ringers 1,000 ML 15 ML IV (10:50)
[2024-12-16] MEDS: Ketorolac 30 MG/ML Syringe IV (10:51)
[2024-12-16] MEDS: Vasopressin 20 UNITS/ML Vial (10:51)
--- NOTE | 2024-12-16 11:25 | EMB_PTH ---
PATIENT: MELVIN RICKETTS [place] [facility] [id number] AGE/SX: 54/F ROOM: RE12/16/[address]: Dr. Sylvie Julio MD : 1970 BED: DIS: 12/16/2024 SPEC #: [id number] RECD: 12/16/24 12:50 STATUS: DHARMESH MARTIN #: [id number] CHASE: 12/16/24 11:[address]: Sylvie Julio DEPT: SURGICAL PATHOLOGY RECD BY: Kael Arroyo ENTERED: 12/16/24 13:40 SP TYPE: ENDOM BX/C ITZ DR: Dr. Beny Zuniga MD Tissues: A - Endometrium, NOS Procedures: Surgery Specimen Level IV HEADER OPERATION: Hysteroscopy D&C PRE-OP DIAGNOSIS: polyp TISSUE SUBMITTED: endometrium, fibroid and polyp MICROSCOPIC DIAGNOSIS A. Endometrium, fibroid and polyp, dilation and curettage: * Fragments of inactive to secretory endometrium with progestin change. * Fragments of smooth muscle suggestive of leiomyoma. MICROSCOPIC DESCRIPTION Slides are reviewed. GROSS DESCRIPTION A. Received in formalin in a container labeled with the patient's name, date of , and endometrial curettings and endometrial fibroid & polyp are multiple carson-pink fragments of soft tissue admixed with blood measuring 2.5 x 2.4 x 1.3 cm in aggregate. Submitted in toto in A1-4. [facility] 12-16-2024 CPT:62912
--- NOTE | 2024-12-16 11:26 | DCINST_ITS ---
Discharge Instructions Diet Discharge Diet: No restrictions DC O2, CPAP, BIPAP needs Home O2 Discharge instructions: No Dressing / Incision Discharge Activity: May Drive (tomorrow), May Shower (tomorrow) and May Take a Tub Bath (in 1 week) Return to work on:: 12/19/24 May resume sexual activity in: 1 week Lifting Restrictions: none Dressing / Incision Call your doctor if your incision/area has: Sudden Increased Bleeding and Foul Smelling Discharge Call your doctor if you observe: Fever of 101 or Higher and Using more than 1 pad per hour (for 2 hrs in a row) Follow Up Care Please Follow Up With: Sylvie Julio MD When: 4-8 weeks or as needed. Call [phone] or send a [employer] message to make an appointment or with any concerns. Test Results: Test results from this visit will be discussed in further detail at your follow- up appointment, if applicable. Discharge Plan Admission Primary Reason for Your Visit: Hysteroscopy D&C with IUD insertion Attending Provider: Sylvie Julio Primary Care Provider: Beny Zuniga Instructions Print Language: Chilean Discharge Orders/Prescriptions Prescriptions: Continued metoprolol tartrate 25 mg tablet 25 mg PO BID multivitamin [Daily Multi-Vitamin] Tablet 1 tab PO DAILY cholecalciferol (vitamin D3) [Vitamin D3] 10 mcg (400 unit) capsule 10 mcg PO DAILY Discontinued norethindrone acetate 5 mg tablet 5 mg PO TID Referrals / Follow Up: Beny Zuniga MD [Primary Care Provider] - Disposition Disposition (needs filled in before D/C Order can be placed): Home, Self Care
[2024-12-16] MEDS: 0.9% Normal Saline (Pres. free 10 ML Vial (11:33)
[2024-12-16] MEDS: Levonorgestrel IUD (Liletta) 1 EACH INTRA-UTER (11:35)
--- NOTE | 2024-12-16 11:52 | PCM.OPRPT ---
Problems Associated Problem List Diagnoses (1) Adenomyosis: (2) Endometrial thickening on ultrasound: (3) Endometrial polyp: (4) PMB (postmenopausal bleeding): (5) Submucous uterine fibroid: Operative Report (Standard) Operative Information Date of Procedure: 12/16/24 Pre-Operative Diagnosis: PMB, thickened endometrium and endometrial polyp Post-Operative Diagnosis: same + submucous uterine fibroid Surgery/Procedure Performed: Hysteroscopy D&C with polyp and fibroid resection and Liletta IUD insertion gerontology aide: No Type of Anesthesia: MAC RN Documented Start/Stop Times: Operation Date: 12/16/24 11:25 Case Time Into Pre-Op 12/16/24 10:13 Out of Pre-Op 12/16/24 11:15 Anesthesia Start 12/16/24 11:17 Into Room 12/16/24 11:17 Procedure Start 12/16/24 11:30 Procedure End 12/16/24 11:50 Procedure Start Time: 11:30 Procedure Stop Time: 11:50 Select all DRAINS/GRAFTS/IMPLANTS that apply: None Special Medications: none Estimated Blood Loss: 20 Fluids Replaced: 700 Specimen collected: Yes Description of specimen(s) removed: endometrial polyp, curettings and uterine fibroids Description of surgery: The patient was taken to the OR where she was prepped and draped in dorsal lithotomy position. The weighted speculum was placed in the vagina and the anterior lip of the cervix was grasped with a single-tooth tenaculum. A paracervical block was administered with 8 cc of dilute vasopressin solution. This was 20 cc of injectable saline with 10 units of vasopressin.. The cervix was dilated serially with Hegar dilators. The Symphion hysteroscope was placed into the uterine cavity and the above findings were noted. Bilateral tubal ostia were identified. The Symphion resection device was inserted. The polypoid material was removed and a visual D&C was done. There was a bulging into the cavity in the left upper fundal area. As I resected in that area a fibroid protruded into view and was resected. At this point there were no focal abnormalities remaining in the endometrial cavity. The instruments were removed from the vagina. The specimen was handed off and sent to pathology. Liletta IUD was readied and inserted in the usual sterile fashion. The uterus sounded to 9 cm and was anteverted. The strings were trimmed to 2 cm. All sponge and needle counts were correct. Vaginal sweep was performed by me. The patient was awakened and taken to the recovery room in stable condition. Calculated hysteroscopic fluid deficit was 650 cc of normal saline Surgical Findings: lush ragged endometrium, anterior submucosal fibroid, endometrial polypoid material, normal cervix and vagina Complications Complications: No Admit VTE Documentation VTE Present on Admission: No VTE Mechan Device [place] [facility] [place] Prophylaxis ordered?: No
--- NOTE | 2024-12-16 12:01 | PCM.POST.ANE ---
Anesthesia: Postop Eval I Current Vital Signs Temperature: 97.4 F Pulse Rate: 85 Blood Pressure: 120/73 Respiratory Rate: 16 Pulse Ox: 98 Oxygen Delivery Method: Simple Mask Oxygen Flow Rate (L/min): 4 Assessment Airway patent: Yes Spontaneous unlabored respirations: Yes Mental status: Awake and Calm nausea: No Vomiting: No Anesthesia Complication: No Fluid Hydration Crystalloid volume administer (ml): 700 Total IV fluid infused: 700 Progress Note Anesthesia document: Postop Eval 1 completed: Yes
--- NOTE | 2024-12-16 12:14 | POSTOPAN2_ITS ---
Anesthesia Postop Eval I Sum Postop Eval Completion status Anesthesia document: Postop Eval 1 completed: Yes Anesthesia Postop Eval I Summary Anesthesia Postop Eval I Summary: Anesthesia Postop Eval I: Assessment Summary Airway patent Yes 12/16/24 12:02 [email or web address] Spontaneous unlabored Yes 12/16/24 12:02 [email or web address] respirations Mental status Awake,Calm 12/16/24 12:02 [email or web address] nausea No 12/16/24 12:02 [email or web address] Vomiting No 12/16/24 12:02 [email or web address] Anesthesia Postop Eval I: Fluid Summary Crystalloid volume administer 700 12/16/24 12:02 [email or web address] (ml) Colloids volume administered ( ml) Blood Product volume administered (ml) Total IV fluid infused 700 12/16/24 12:02 [email or web address] Anesthesia Postop Eval I: Summary Notes Anesthesia Complication No 12/16/24 12:02 [email or web address] Anesthesia Complication Comment: Post-operative progress note Anesthesia: Postop Eval II Evaluation Mental status: Awake Pain Level: 0 nausea: No Vomiting: No
--- NOTE | 2024-12-16 12:14 | PCM.POSTANE2 ---
Anesthesia Postop Eval I Sum Postop Eval Completion status Anesthesia document: Postop Eval 1 completed: Yes Anesthesia Postop Eval I Summary Anesthesia Postop Eval I Summary: Anesthesia Postop Eval I: Assessment Summary Airway patent Yes 12/16/24 12:02 [email or web address] [email or web address] Spontaneous unlabored Yes 12/16/24 12:02 COCKTAIL [email or web address] respirations Mental status Awake,Calm 12/16/24 12:02 [email or web address] [email or web address] nausea No 12/16/24 12:02 COCKTAIL [email or web address] Vomiting No 12/16/24 12:02 COCKTAIL [email or web address] Anesthesia Postop Eval I: Fluid Summary Crystalloid volume administer 700 12/16/24 12:02 [email or web address] [email or web address] (ml) Colloids volume administered ( ml) Blood Product volume administered (ml) Total IV fluid infused 700 12/16/24 12:02 [email or web address] [email or web address] Anesthesia Postop Eval I: Summary Notes Anesthesia Complication No 12/16/24 12:02 [email or web address] [email or web address] Anesthesia Complication Comment: Post-operative progress note Anesthesia: Postop Eval II Evaluation Mental status: Awake Pain Level: 0 nausea: No Vomiting: No
== END 2024-12-16 13:59 | disposition home or self-care (01) ==
LOC: SDC 10:03 → AC 10:05
PROVIDERS: PCP Internal Medicine; Referring Provider Obstetrics & Gynecology; Visit Provider Obstetrics & Gynecology
PROC: 0UB98ZZ Excision of Uterus, Via Natural or Artificial Opening Endoscopic (ICD-10-PCS; CPT 58558; principal; 2024-12-16 11:10)
DX: D25.0 Submucous leiomyoma of uterus (principal); N84.0 Polyp of corpus uteri; N95.0 Postmenopausal bleeding; N80.03 Adenomyosis of the uterus; I10 Essential (primary) hypertension; K21.9 Gastro-esophageal reflux disease without esophagitis; Z79.899 Other long term (current) drug therapy
CPT/HCPCS: 58558; 58300; 00952; 36415; 80048; 81025; 85027; 88305; J2405